=== PATIENT | female | born 1985 | race Caucasian/White ===

== ENCOUNTER 2024-02-08 11:50 | Emergency (ER) | payer OTHER, SELFPAY ==
[2024-02-08] VITALS (15 sets, daily range): BP systolic 122–151; BP diastolic 95–106; PULSE 62–74; RESP 24; TEMP 36.6; O2SAT 96–98; BMI 71.6
--- NOTE | 2024-02-08 12:33 | ED.CHESTPAIN ---
HPI - Chest Pain General Time Seen by Provider: 12:33 Date Seen: 02/08/24 Chief Complaint: Chest Pain Stated Complaint: Chest pain/jaw/neck Time Seen by Provider: 02/08/24 12:26 Source: patient, RN notes reviewed and old records reviewed Mode of arrival: ambulatory Limitations: no limitations History of Present Illness HPI narrative: Maria D is a very pleasant 38-year-old female with elevated BMI, concerns recently regarding possibility of heart failure who comes to the emergency room for evaluation of chest pain. Maria D notes that she has been experiencing intermittent for chest discomfort. She states it is worse today in this happened after loading some groceries into the back of her car. She has been working as an employee for [employer] the past year after she lost her job. She notes that when she was lifting the grocery she had the onset of very sharp pain in her left upper chest. She notes that this is just below the collar bone. She states that she has also had increasing left lower leg swelling. She notes that her lower legs are always swollen but is been much worse on the left over the past 3 weeks. She is actually going to be going through an echocardiogram for possible heart failure in February at the [facility]. She also states that she has had diarrhea for the past 2 days although no nausea or vomiting. And a few days ago while she ate cheese at night she had a coughing episode that continued and she ended up throwing up overnight. No further vomiting. She notes that taking a deep breath hurts. She has not had a history of DVT in the past. She has not had heart problems in the past Patient denies fever, chills, recent exposure to any illnesses. Related Data Allergies Allergy/AdvReac Type Severity Reaction Status Date / Time cefadroxil [From Duricef] Allergy Verified 02/08/24 11:58 dextromethorphan Allergy Verified 02/08/24 11:58 morphine Allergy Verified 02/08/24 11:58 Penicillins Allergy Verified 02/08/24 11:58 Sulfa (Sulfonamide Allergy Verified 02/08/24 11:54 Antibiotics) Review of Systems Status of ROS Reports: 10 or more systems reviewed and unremarkable except as noted in History and below Const Reports: fatigue; Denies: fever or chills Eyes Denies: change in vision ENMT Denies: throat pain, neck pain or nasal congestion Cardio Reports: chest pain, edema, swelling of feet/ankles and shortness of breath with exertion; Denies: palpitations or lightheadedness Resp Reports: shortness of breath, cough and pain on inspiration GI Reports: diarrhea; Denies: abdominal pain, nausea, vomiting or blood in stool Denies: painful urination Musculo Reports: extremity swelling; Denies: back pain or neck pain Integ/Breast Denies: rash Neuro Denies: headache Endo Reports: fatigue PFSH PFSH Social History Smoking Status: Never smoker Do you use any of these nicotine containing products: None How often do you have a drink containing alcohol: never How often do you have six or more drinks on one occasion: Never AUDIT-C Alcohol total score: 0 Non-prescribed substance use: denies use Exam Narrative Exam Narrative: Alert and oriented. Initially closing eyes and somewhat breathless with examination. As our exam goes on patient does improve able to make good eye contact. Face symmetrical. Mentating normally. Breathing easier I as the exam goes on. Oral cavity with moist mucous membranes neck is supple no lymphadenopathy heart with regular rate and rhythm. Tenderness noted with palpation of the musculoskeletal wall approximately 2 in below the left clavicle. I do not auscultate murmur or rub. Lungs are with distant breath sounds but no crackles. Abdomen is obese soft nontender. Lower extremities show 3+ edema bilaterally. Const Vital Signs, click to edit/add: Vital Signs - 24 hr 02/08/24 11:58 02/08/24 12:42 02/08/24 12:45 Temperature 98 F Pulse Rate 68 67 Pulse Rate [Pulse Oximeter] 73 Respiratory Rate 24 Blood Pressure Blood Pressure [Right Forearm] 151/95 H Pulse Oximetry 98 97 98 Oxygen Delivery Method Room Air 02/08/24 13:07 02/08/24 13:15 02/08/24 13:30 Temperature Pulse Rate 69 64 68 Pulse Rate [Pulse Oximeter] Respiratory Rate Blood Pressure Blood Pressure [Right Forearm] Pulse Oximetry 97 98 97 Oxygen Delivery Method 02/08/24 13:35 02/08/24 13:45 02/08/24 14:00 Temperature Pulse Rate 62 62 65 Pulse Rate [Pulse Oximeter] Respiratory Rate Blood Pressure Blood Pressure [Right Forearm] Pulse Oximetry 98 98 96 Oxygen Delivery Method 02/08/24 14:05 02/08/24 14:15 02/08/24 14:30 Temperature Pulse Rate 67 74 68 Pulse Rate [Pulse Oximeter] Respiratory Rate Blood Pressure Blood Pressure [Right Forearm] Pulse Oximetry 97 97 98 Oxygen Delivery Method 02/08/24 14:35 02/08/24 14:36 02/08/24 14:40 Temperature Pulse Rate 70 73 Pulse Rate [Pulse Oximeter] Respiratory Rate Blood Pressure 122/106 H Blood Pressure [Right Forearm] Pulse Oximetry 98 98 Oxygen Delivery Method Documenting provider has reviewed patient's vital signs: yes Course Course ED Course: Maria D reports chronic lower extremity edema now with 3 weeks of increasing discomfort and edema in her left leg. She has had intermittent chest pain in the onset of acute pain that she is describing as sharp today after lifting some grocery bags. She does no pain with deep inspiration and she does have tenderness in this area upon palpation. EKG is reassuring with sinus rhythm. No evidence of hypoxia or tachycardia. No history of DVT but given the significant lower extremity swelling will attempt lower extremity Doppler bilaterally. Will also check troponin, CBC, chest x-ray, comprehensive panel. At this time I do not believe your dealing with a PE with a normal heart rate and no evidence of hypoxia. Given the lower extremity swelling I do have to consider the possibility of a DVT. Also ordering EKG and cardiac monitoring because this is chest pain although some of the symptoms do lean more toward a musculoskeletal component. Reevaluation(s) Reevaluation #1: Patient appears to be doing much better. No medications were given. Vital signs continue to be stable. Currently awaiting results. Vital Signs Vital signs: Initial Vital Signs Temperature 98 F 02/08/24 11:58 Temperature Source Temporal Artery Scan 02/08/24 11:58 Pulse Rate 73 02/08/24 11:58 Pulse Rhythm Regular 02/08/24 11:58 Respiratory Rate 24 02/08/24 11:58 Blood Pressure 151/95 H 02/08/24 11:58 Blood Pressure Mean 113 H 02/08/24 11:58 Blood Pressure Position Sitting 02/08/24 11:58 Pulse Oximetry 98 02/08/24 11:58 Oxygen Delivery Method Room Air 02/08/24 11:58 Vital Signs Temperature 98 F 02/08/24 11:58 Pulse Rate 73 02/08/24 11:58 Respiratory Rate 24 02/08/24 11:58 Blood Pressure 151/95 H 02/08/24 11:58 Pulse Oximetry 98 02/08/24 11:58 Oxygen Delivery Method Room Air 02/08/24 11:58 Temperature 98 F 02/08/24 11:58 Pulse Rate 73 02/08/24 14:36 Respiratory Rate 24 02/08/24 11:58 Blood Pressure 122/106 H 02/08/24 14:40 Pulse Oximetry 98 02/08/24 14:36 Oxygen Delivery Method Room Air 02/08/24 11:58 MDM - Chest Pain MDM Narrative Medical decision making narrative: 1. Atypical chest pain-patient has normal EKG and 2 cardiac enzymes that are negative. No evidence of congestive heart failure with a normal proBNP and chest x-ray. Given these reassuring labs and examination findings I strongly suspect that this is a musculoskeletal discomfort. 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 I strongly recommend continuing care with her primary clinic in [place] and ensuring that she does go to her appointment for echocardiogram in February. Seek medical attention for worsening symptoms. 2. Lower extremity edema-chronic with no evidence of DVT. Noted some swelling commented on right leg by radiologist. I do not note any evidence of cellulitis or drainage. 3. Diarrhea-potassium is at 3.4. COVID is negative 4. Disposition-home at this time. Patient had requested to go home after initial troponin was negative. I did ask that she stay for a 2nd troponin and now that this is negative will allow her to go home. She agrees she feels safe to do so. Return to the emergency room as needed. Lab Data Attestation: I reviewed the patient's lab results. Labs: Lab Results 02/08/24 02/08/24 02/08/24 Range/Units 12:49 13:05 15:00 WBC 9.30 (4.50-11.00) K/uL RBC 4.12 (4.00-5.20) m/uL Hgb 11.8 L (12.0-16.0) gm/dL Hct 38.7 (33.0-51.0) % MCV 94 (80-100) fL MCH 29 (26-34) pg MCHC 31 L (32-36) gm/dL RDW Coeff of Irineo 15.4 (11.5-15.5) % Plt Count 272 (140-440) K/uL Neut % (Auto) 75.5 H (42.0-72.0) % Lymph % (Auto) 15.4 L (20-44) % [place] % (Auto) 5.1 (0.0-11.0) % Eos % (Auto) 3.4 (0.0-7.0) % Baso % (Auto) 0.5 (0.0-3.0) % Neut # (Auto) 7.00 (1.7-7.0) K/uL Lymph # (Auto) 1.40 (0.90-2.90) K/uL [place] # (Auto) 0.50 (0.00-0.90) K/UL Eos # (Auto) 0.32 (0.00-0.50) K/uL Baso # (Auto) 0.05 (0.00-0.30) K/uL Abs Immat Gran (auto) 0.01 (0.00-0.30) K/uL Imm/Tot Granulo (auto) 0.1 % Sodium 137 (135-149) mmol/L Potassium 3.4 L (3.6-5.1) mmol/L Chloride 102 (96-114) mmol/L Carbon Dioxide 25 (20-32) mmol/L Anion Gap 10 (7-15) mEq/L BUN 10 (5-24) mg/dL Creatinine 1.0 (0.5-1.5) mg/dL Estimated Creat Clear 67.96 Estimated GFR 73 ml/min Glucose 93 (60-115) mg/dL Calcium 9.5 (8.4-10.6) mg/dL Total Bilirubin 0.3 (0.1-1.5) mg/dL AST 32 (12-35) U/L ALT 35 (4-35) U/L Alkaline Phosphatase 77 (40-150) U/L NT-Pro-B Natriuret Pep 85 pg/mL Total Protein 7.6 (6.0-8.3) g/dL Albumin 4.5 (3.3-5.0) g/dL POC Troponin I 0.00 L 0.01 (0.01-0.04) ng/ml Imaging Data Chest x-ray: Attestation: I have reviewed the pertinent imaging results. My impression: No acute infiltrates. Radiologist's impression: ardiovasculature and mediastinum: Heart size is normal. No pulmonary edema. Lungs and pleural spaces: No sign of infiltrate or mass. No sign of pleural effusion. No pneumothorax. Bones and soft tissues: No acute findings. IMPRESSION: No acute cardiopulmonary process. Venous US: Attestation: I have reviewed the pertinent imaging results. Radiologist's impression: Deep veins: Sonographic imaging demonstrates bilateral common femoral, deep femoral, superficial femoral, popliteal limited assessment of the posterior tibial and peroneal veins to be fully compressible with normal color Doppler blood flow. Limited assessment of the popliteal and peroneal veins secondary to patient`s body habitus. However, blood flow is identified on the augmentation. Superficial veins: Greater saphenous vein is fully compressible. Mild subcutaneous edema of the right lower extremity. IMPRESSION: Limited exam secondary to patient`s body habitus. No evidence of deep venous thrombosis of the proximal bilateral lower extremity veins. Mild subcutaneous edema of right distal lower extremity. Left knee x-ray: Attestation: I have reviewed the pertinent imaging results. My impression: I do not note any acute fractures. Radiologist's impression: No acute fracture or dislocation. Small to moderate joint effusion. The joint spaces are maintained. No localized soft tissue swelling. Impression: No acute osseous findings. ECG Data Attestation: I personally reviewed and interpreted this ECG as follows: ECG interpretation date: 02/08/24 Interpretation: EKG by my read shows sinus rhythm at a rate of 63. I do not note any acute ST or T-wave changes. QT and DC intervals within normal limits. Discharge Plan Discharge Clinical Impression: Atypical chest pain, Lymphedema, Hypokalemia Patient Disposition: Home, Self-Care Condition: Improved Additional Instructions: Your potassium today was 3.4. Continue your current dosing. I recommend strongly keeping her appointment in February for an echocardiogram. Please seek medical attention for worsening symptoms. Stand Alone Forms: [place] Info Instructions
--- NOTE | 2024-02-08 12:49 | XR_ITS ---
Patient: NELIDA HERNANDEZ Facility:?[facility] Patient ID:?[id number] Site Patient ID:?[id number]. Site :?1985 Study:?XRay-Chest PORTABLE 1 VIEW-02/08/2024 1:20:13 PM Ordering Physician:?Emily Albarran Final Report: INDICATION: Chest pain. TECHNIQUE: Chest 1 views. COMPARISON: None. FINDINGS: Cardiovasculature and mediastinum: Heart size is normal. No pulmonary edema. Lungs and pleural spaces: No sign of infiltrate or mass. No sign of pleural effusion. No pneumothorax. Bones and soft tissues: No acute findings. IMPRESSION: No acute cardiopulmonary process. Dictated by Talon Nicole MD @ 02/08/2024 1:24:31 PM Signed by:?Talon Nicole MD @02/08/2024 1:24:31 PM (Electronic Signature)
--- NOTE | 2024-02-08 12:52 | US_ITS ---
Patient: NELIDA HERNANDEZ Facility:?[facility] Patient ID:?[id number] Site Patient ID:?[id number]. Site :?1985 Study:?US-Extremity Bilateral LEV BILATERAL-02/08/2024 2:06:44 PM Ordering Physician:?Emily Albarran Final Report: INDICATION: Leg pain and swelling. TECHNIQUE: Ultrasound venous duplex bilateral lower extremity. Compression venous exam was performed using herrera-scale, color Doppler, and spectral Doppler analysis. COMPARISON: None. FINDINGS: Deep veins: Sonographic imaging demonstrates bilateral common femoral, deep femoral, superficial femoral, popliteal limited assessment of the posterior tibial and peroneal veins to be fully compressible with normal color Doppler blood flow. Limited assessment of the popliteal and peroneal veins secondary to patient`s body habitus. However, blood flow is identified on the augmentation. Superficial veins: Greater saphenous vein is fully compressible. Mild subcutaneous edema of the right lower extremity. IMPRESSION: Limited exam secondary to patient`s body habitus. No evidence of deep venous thrombosis of the proximal bilateral lower extremity veins. Mild subcutaneous edema of right distal lower extremity. Dictated by Talon Nicole MD @ 02/08/2024 2:27:26 PM Signed by:?Talon Nicole MD @02/08/2024 2:27:26 PM (Electronic Signature)
[2024-02-08 13:22] LABS: Basophils Absolute Auto 0.05 K/uL (0.00-0.30); Basophils Percent Auto 0.5 % (0.0-3.0); Eosinophils Absolute Auto 0.32 K/uL (0.00-0.50); Eosinophils Percent Auto 3.4 % (0.0-7.0); Hematocrit 38.7 % (33.0-51.0); Hemoglobin* 11.8 gm/dL (12.0-16.0); Immature Granulocytes Abs Auto 0.01 K/uL (0.00-0.30); Immature Granulocytes Pct Auto 0.1 %; Lymphocytes Percent Auto 15.4 % (20-44); Mean Corpuscular HGB Conc 31 gm/dL (32-36); Mean Corpuscular Hemoglobin 29 pg (26-34); Mean Corpuscular Volume 94 fL (80-100); Monocytes Percent Auto 5.1 % (0.0-11.0); Neutrophils Percent Auto 75.5 % (42.0-72.0); Platelet Count* 272 K/uL (140-440); RDW Coefficient of Variation % 15.4 % (11.5-15.5); Red Blood Count 4.12 m/uL (4.00-5.20)
[2024-02-08 13:25] LABS: Slide Review Reflex No
--- NOTE | 2024-02-08 13:26 | XR_ITS ---
Patient: NELIDA HERNANDEZ Facility:?[facility] Patient ID:?[id number] Site Patient ID:?[id number]. Site :?1985 Study:?XRay-Knee Left 2V KNEE AP/LAT-02/08/2024 2:09:25 PM Ordering Physician:?Emily Albarran Final Report: Indication: Fall Technique: Left knee 2 views. Comparison: None. Findings: No acute fracture or dislocation. Small to moderate joint effusion. The joint spaces are maintained. No localized soft tissue swelling. Impression: No acute osseous findings. Dictated by Talon Nicole MD @ 02/08/2024 2:14:56 PM Signed by:?Talon Nicole MD @02/08/2024 2:14:56 PM (Electronic Signature)
[2024-02-08 13:32] LABS: Albumin* 4.5 g/dL (3.3-5.0)
[2024-02-08 13:33] LABS: Chloride* 102 mmol/L (96-114); Potassium* 3.4 mmol/L (3.6-5.1); Sodium* 137 mmol/L (135-149)
[2024-02-08 13:35] LABS: Anion Gap 10 mEq/L (7-15); Bilirubin Total* 0.3 mg/dL (0.1-1.5); Carbon Dioxide* 25 mmol/L (20-32); Est. Creatinine Clearance* 67.96; Estimated Glomerular Filt Rate 73 ml/min
[2024-02-08 13:36] LABS: Alanine Aminotransferase* 35 U/L (4-35); Alkaline Phosphatase* 77 U/L (40-150); Aspartate Amino Transferase* 32 U/L (12-35); Blood Urea Nitrogen* 10 mg/dL (5-24); Glucose* 93 mg/dL (60-115); Total Protein* 7.6 g/dL (6.0-8.3)
[2024-02-08 13:37] LABS: Calcium* 9.5 mg/dL (8.4-10.6)
[2024-02-08 13:54] LABS: NT Pro B Type NatriureticPept* 85 pg/mL
[2024-02-08 15:25] LABS: Troponin, Point-of-Care* 0.01 ng/ml (0.01-0.04)
== END 2024-02-08 16:03 | disposition home or self-care (01) ==
PROVIDERS: Emergency Provider Family Medicine
DX: R07.89 Other chest pain (principal); I89.0 Lymphedema, not elsewhere classified; E87.6 Hypokalemia
CPT/HCPCS: 36415; 71045; 73560; 80053; 83880; 84484; 85025; 93005; 93970; 99284; 99285